=== PATIENT | male | born 1965 | race Caucasian/White ===

== ENCOUNTER → 2017-01-24 | Outpatient (CLI) | payer MEDICARE, OTHER ==
--- NOTE | 2017-01-24 20:39 | PN ---
DATE OF SERVICE: 01/24/2017 51-year-old gentleman who has been followed in the sleep center for treatment of obstructive sleep apnea-hypopnea syndrome. Patient continues to use his CPAP equipment every night without any significant problems. Sleeps well with the machine. I checked his CPAP unit. Usage is 26 out of 30 nights for more than 4 hours, average 8 hours per night. No sleepiness during the day. [place] Sleepiness Scale is 8. Not any recent episodes of migraines or seizures. MEDICATIONS: 1. Tegretol. 2. Celexa. 3. Third medication, the patient does not remember the name. During physical exam, the patient in no distress. VITAL SIGNS: BP 134/80, HR 68, RR 16. Height 5 foot 2, weight 166. BMI 30.3. Neck 14-3/4 inches in circumference. Temp is 98.0. Oxygen saturation at room air 98%. HEENT: PERRLA, EOMI oropharynx low position of soft palate. The nose, possibly has some nasal septum deviation. PHYSICAL EXAMINATION: GENERAL: A pleasant patient without any distress. VITAL SIGNS: BP, HR, RR, weight, body mass index. HEENT: PERRLA, EOMI. Evaluation of oropharynx showed tongue protrudes midline. Neck: Supple. No JVD. Thyroid is not palpable. LUNGS: Clear to percussion and to auscultation. Good air exchange. No wheezing or rhonchi. HEART: S1, S2 regular. No murmurs, gallops, or rubs. ABDOMEN: Soft and nontender. Bowel sounds are present. No organomegaly appreciated. EXTREMITIES: No clubbing or cyanosis. 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 Cranial nerves 2 to 7 intact. There is no fasciculation or atrophy noted. No focal deficits observed. IMPRESSION: 1. Obstructive sleep apnea-hypopnea syndrome on control with CPAP at 9 cm of water, 100% compliance with treatment benefitting from treatment. 2. Very minimal obesity, body mass index of 30.3. 3. History of seizures. Not any episodes of seizures since last year. 4. History of migraines. Not any episodes of migraines recently. 5. History of asthma. 6. Depression. PLAN: 1. Continue treatment with CPAP every night for the whole night. 2. Continue losing weight. 3. Sleep hygiene with regular time bed for at least 8 hours. 4. No driving if feeling any sleepiness. 5. Prescription for all necessary CPAP supplies, including mask, tube, filters. Thank you very much for allowing me to participate in the management of your patient. Sincerely, Dheeraj Peterson MD, PhD, FAASM. Diplomat of [place] [employer], Sleep Medicine Board by [place] [employer] [place] [employer] [facility] [place]
== END | disposition home or self-care (01) ==
LOC: SLEEP 14:56
PROVIDERS: ATTEND Internal Medicine
DX: G47.33 Obstructive sleep apnea (adult) (pediatric) (principal); Z79.899 Other long term (current) drug therapy; E66.9 Obesity, unspecified; Z68.30 Body mass index [BMI] 30.0-30.9, adult; F32.9 Major depressive disorder, single episode, unspecified; R56.9 Unspecified convulsions